=== PATIENT | male | born 1995 | race African-American/Black ===

== ENCOUNTER 2023-05-13 22:03 | Emergency (ER) | payer OTHER ==
--- NOTE | 2023-05-13 22:27 | EDPHYS ---
Physician Documentation [facility] Name: Marco A Hines Age: 27 yrs Sex: Male : 1995 Arrival Date: 05/13/2023 Time: 22:03 Bed 14 Private MD: ED Physician Jose Webb HPI: 05/13 22:20 This 27 yrs old Black Male presents to ER via Unassigned with complaints of right danyel hernia, painful. 22:20 The patient presents with scrotal pain, of the right side, swelling. Onset: The danyel symptoms/episode began/occurred today. Modifying factors: The symptoms are alleviated by remaining still, the symptoms are aggravated by movement. Associated signs and symptoms: Pertinent positives: abdominal pain. Severity of symptoms: At their worst the symptoms were moderate, in the emergency department the symptoms have improved. The patient has experienced similar episodes in the past, several times. Historical: - Allergies: 22:40 No Known Allergies; jw7 - Home Meds: 22:40 None [Active]; jw7 - PMHx: 22:40 None; jw7 - PSHx: 22:40 None; jw7 - Immunization history:: Adult Immunizations up to date. - Social history:: Smoking status: Reported history of juuling and/or vaping. - Family history:: not pertinent. ROS: 22:22 Constitutional: Negative for fever, chills, and weight loss, Eyes: Negative for injury, danyel pain, redness, and discharge, ENT: Negative for injury, pain, and discharge, Neck: Negative for injury, pain, and swelling, Cardiovascular: Negative for chest pain, palpitations, and edema, Respiratory: Negative for shortness of breath, cough, wheezing, and pleuritic chest pain, Back: Negative for injury and pain, : Negative for injury, bleeding, discharge, and swelling, MS/Extremity: Negative for injury and deformity, Skin: Negative for injury, rash, and discoloration, Neuro: Negative for headache, weakness, numbness, tingling, and seizure, Psych: Negative for depression, anxiety, suicide ideation, homicidal ideation, and hallucinations, Allergy/Immunology: Negative for hives, rash, and allergies, Endocrine: Negative for neck swelling, polydipsia, polyuria, polyphagia, and marked weight changes, Hematologic/Lymphatic: Negative for swollen nodes, abnormal bleeding, and unusual bruising. 22:22 Abdomen/GI: Positive for abdominal pain, of the right lower quadrant and left lower quadrant. Exam: 22:22 Constitutional: This is a well developed, well nourished patient who is awake, alert, danyel and in no acute distress. Head/Face: Normocephalic, atraumatic. Eyes: Pupils equal round and reactive to light, extra-ocular motions intact. Lids and lashes normal. Conjunctiva and sclera are non-icteric and not injected. Cornea within normal limits. Periorbital areas with no swelling, redness, or edema. ENT: Nares patent. No nasal discharge, no septal abnormalities noted. Tympanic membranes are normal and external auditory canals are clear. Oropharynx with no redness, swelling, or masses, exudates, or evidence of obstruction, uvula midline. Mucous membranes moist. Neck: Trachea midline, no thyromegaly or masses palpated, and no cervical lymphadenopathy. Supple, full range of motion without nuchal rigidity, or vertebral point tenderness. No Meningismus. Chest/axilla: Normal chest wall appearance and motion. Nontender with no deformity. No lesions are appreciated. Cardiovascular: Regular rate and rhythm with a normal S1 and S2. No gallops, murmurs, or rubs. Normal PMI, no JVD. No pulse deficits. Respiratory: Lungs have equal breath sounds bilaterally, clear to auscultation and percussion. No rales, rhonchi or wheezes noted. No increased work of breathing, no retractions or nasal flaring. Back: No spinal tenderness. No costovertebral tenderness. Full range of motion. Skin: Warm, dry with normal turgor. Normal color with no rashes, no lesions, and no evidence of cellulitis. MS/ Extremity: Pulses equal, no cyanosis. Neurovascular intact. Full, normal range of motion. Neuro: Awake and alert, GCS 15, oriented to person, place, time, and situation. Cranial nerves II-XII grossly intact. Motor strength 5/5 in all extremities. Sensory grossly intact. Cerebellar exam normal. Normal gait. Psych: Awake, alert, with orientation to person, place and time. Behavior, mood, and affect are within normal limits. 22:22 Abdomen/GI: Inspection: abdomen appears normal, Bowel sounds: normal, Palpation: moderate abdominal tenderness, in the right lower quadrant and left lower quadrant, Hernia: noted in the right femoral area, tenderness, that is moderate, bowel sounds are appreciated on auscultation. Vital Signs: 22:30 BP 113 / 74; Pulse 50; Resp 17 S; Pulse Ox 100% on R/A; jw7 22:36 BP 107 / 57; Pulse 48; Resp 17 S; Temp 97.6; Pulse Ox 100% on R/A; Weight 74.84 kg; jw7 Height 5 ft. 8 in. ; Pain 7/10; 05/14 00:16 BP 127 / 91; Pulse 60; Resp 16 S; Pulse Ox 100% on R/A; jw7 05/13 22:36 Body Mass Index 25.09 (74.84 kg, 172.72 cm) [facility] 22:36 Pain Scale: Adult [facility] MDM: 05/13 22:15 Patient medically screened. [facility] 22:23 Differential diagnosis: nonspecific abdominal pain, bowel obstruction, gastritis. Data danyel reviewed: vital signs, nurses notes, lab test result(s), radiologic studies, CT scan. Consideration of Admission/Observation Patient was admitted/placed on observation. Escalation of care including admission/observation considered. I considered the following discharge prescriptions or medication management in the emergency department Medications were administered in the Emergency Department. See MAR. Independent interpretation of the following test(s) in the Emergency Department Radiology Department Ultrasound: My interpretation is right hernia. Test considered but Not performed: Ultrasound no scrotal usg. Historians other than the Patient: EMS: tdc guards. Care significantly affected by the following chronic conditions: none. Counseling: I had a detailed discussion with the patient and/or guardian regarding: the historical points, exam findings, and any diagnostic results supporting the discharge/admit diagnosis, lab results, radiology results, the need to transfer to another facility, for higher level of care, [facility] does not immediately have the required specialist. 05/13 22:19 Order name: CBC with Diff; Complete Time: 23:37 [facility] 05/13 22:19 Order name: CMP; Complete Time: 23:37 [facility] 05/13 22:19 Order name: Lipase; Complete Time: 23:37 [facility] 05/13 22:19 Order name: Urinalysis w/ reflexes; Complete Time: 23:37 [facility] 05/13 22:19 Order name: CT Abd/Pelvis - IV Contrast Only [facility] 05/14 00:39 Order name: US Scrotum Testicles danyel 05/13 22:19 Order name: IV Saline Lock; Complete Time: 23:09 danyel 05/13 22:19 Order name: Labs collected and sent; Complete Time: 23:09 danyel Administered Medications: 23:09 Drug: NS 0.9% IV 1000 ml Route: IV; Rate: 1 bolus; Site: right antecubital; jw7 05/14 00:02 Follow up: Response: No adverse reaction; IV Status: Infusion continued; IV Intake: jw7 500ml 01:52 Follow up: IV Status: Completed infusion; IV Intake: 800ml 7 05/13 23:09 Drug: Ondansetron IVP 4 mg Route: IVP; Site: right antecubital; jw7 05/14 00:02 Follow up: Response: No adverse reaction [facility] 05/13 23:09 Drug: morphine IVP or IV 4 mg Route: IVP; Infused Over: 4 mins; Site: right antecubital;jw7 05/14 00:02 Follow up: Response: No adverse reaction jw7 Disposition Summary: 05/14/23 01:32 Discharge Ordered Location: Home danyel Problem: new(05/14/23 01:32) danyel Symptoms: have improved(05/14/23 01:32) danyel Condition: Stable(05/14/23 01:32) danyel Diagnosis - Hydrocele, unspecified - large right(05/14/23 01:33) danyel Followup: danyel - With: Private Physician - When: 2 - 3 days - Reason: Recheck today's complaints, Continuance of care, Re-evaluation by your physician Followup: danyel - With: - When: 2 - 3 days - Reason: Recheck today's complaints, Re-evaluation by your physician Discharge Instructions: - Discharge Summary Sheet danyel - Testicular Self-Exam danyel - Hydrocele, Adult danyel - Hydrocelectomy, Adult, Care After danyel - Hydrocelectomy, Adult danyel - Testicular Self-Exam, [id number] danyel Forms: - Medication Reconciliation Form danyel - Thank You Letter danyel - Antibiotic Education danyel - Prescription Opioid Use danyel - Patient Portal Instructions danyel Signatures: Dispatcher [employer] Jose Montano MD MD cha Waits, Jodi RN RN jw7 Corrections: (The following items were deleted from the chart) 05/13 22:27 22:27 to tdc danyel danyel : 22:27 Unilateral inguinal hernia, without obstruction or gangrene - painful danyel danyel 05/14 00:45 05/13 22:27 [facility] danyel danyel 05/14 00:45 05/13 22:27 Higher level of care danyel danyel 05/14 00:45 05/13 22:27 Fair danyel montaño 05/14 00:45 05/13 22:27 new danyel montaño 05/14 00:45 05/13 22:27 have improved danyel montaño 05/14 00:45 08 22:27 to td danyel danyel 05/14 00:45 05/13 22:27 Unilateral inguinal hernia, without obstruction or gangrene - painful, not danyel reducable danyel 05/14 01:33 01:32 Hydrocele, unspecified danyel montaño
[2023-05-13] MEDS ORDERED: NA CHLORIDE 0.9% 1,000 ML ONE (22:56)
[2023-05-13] MEDS ORDERED: ONDANSETRON 4 MG/2 ML VIAL ONE (22:56)
[2023-05-13] MEDS ORDERED: MORPHINE 4 MG/ML SYR ONE (22:56)
[2023-05-13 23:14] LABS: Absolute Lymphocytes (CBC) 2.5 K/uL (0.7-4.9); Hematocrit 38.3 % (39.6-49.0); Lymphocytes % 47.8 % (15.3-44.8); MCV 93.8 fL (80-100); MPV 7.1 fL (7.6-11.3); RBC Red Blood Cell Count 4.08 M/uL (4.33-5.43)
[2023-05-13 23:20] LABS: Specific Gravity > 1.030 (1.005-1.030); Urine Bacteria None Seen /HPF (<20); Urine Bilirubin NEGATIVE (Negative); Urine Blood Negative (Negative); Urine Clarity Clear (Clear); Urine Color Light-Yellow (Yellow); Urine Glucose NEGATIVE (Negative); Urine Mucus Slight /HPF (None Seen); Urine Protein 1+ (Negative); Urine RBC <5 /HPF (None Seen); Urine Urobilinogen 1+ (Normal); Urine pH 6.5 (5.0-7.0)
[2023-05-13 23:33] LABS: Albumin 4.2 g/dL (3.4-5.0); Bilirubin Total 0.3 mg/dL (0.2-1.0); Potassium 4.1 mEq/L (3.5-5.1); Protein, Total 7.7 g/dL (6.4-8.2)
--- NOTE | 2023-05-14 01:33 | ER ---
Nurse's Notes [facility] Name: Marco A Hines Age: 27 yrs Sex: Male : 1995 Arrival Date: 05/13/2023 Time: 22:03 Bed 14 Private MD: Diagnosis: Hydrocele, unspecified-large right Presentation: 05/13 22:36 Chief complaint: Patient states: has a hernia to right groin, "heard a pop sound from jw7 right groin", with severe onset of pain. Seen in [place] 2 weeks ago. Coronavirus screen: At this time, the client does not indicate any symptoms associated with coronavirus-19. Ebola Screen: No symptoms or risks identified at this time. Initial Sepsis Screen: Does the patient meet any 2 criteria? No. Patient's initial sepsis screen is negative. Does the patient have a suspected source of infection? No. Patient's initial sepsis screen is negative. Risk Assessment: Do you want to hurt yourself or someone else? Patient reports no desire to harm self or others. Onset of symptoms was May 13, 2023. 22:36 Method Of Arrival: EMS: [facility] 22:36 Acuity: ROHIT 3 jw7 Triage Assessment: 22:40 General: Appears in no apparent distress. Behavior is calm, cooperative. Pain: jw7 Complains of pain in right femoral area. Historical: - Allergies: 22:40 No Known Allergies; jw7 - Home Meds: 22:40 None [Active]; jw7 - PMHx: 22:40 None; jw7 - PSHx: 22:40 None; jw7 - Immunization history:: Adult Immunizations up to date. - Social history:: Smoking status: Reported history of juuling and/or vaping. - Family history:: not pertinent. Screenin:11 [facility] ED Fall Risk Assessment (Adult) History of falling in the last 3 months, jw7 including since admission No falls in past 3 months (0 pts) Score/Fall Risk Level 0 - 2 = Low Risk. Abuse screen: Denies threats or abuse. Denies injuries from another. Nutritional screening: No deficits noted. Tuberculosis screening: No symptoms or risk factors identified. Vital Signs: 22:30 BP 113 / 74; Pulse 50; Resp 17 S; Pulse Ox 100% on R/A; jw7 22:36 BP 107 / 57; Pulse 48; Resp 17 S; Temp 97.6; Pulse Ox 100% on R/A; Weight 74.84 kg; jw7 Height 5 ft. 8 in. ; Pain 7/10; 05/14 00:16 BP 127 / 91; Pulse 60; Resp 16 S; Pulse Ox 100% on R/A; jw7 05/13 22:36 Body Mass Index 25.09 (74.84 kg, 172.72 cm) jw7 22:36 Pain Scale: Adult jw7 ED Course: 05/13 22:14 Patient arrived in ED. rv1 22:15 Jose Webb MD is Attending Physician. [facility] 22:36 Macy Salinas RN is Primary Nurse. jw7 22:40 Triage completed. jw7 22:40 Arm band placed on. jw7 23:09 Initial lab(s) drawn, by nd, sent to lab. Urine collected: clean catch specimen, clear. jw7 Inserted saline lock: 20 gauge in right antecubital area, using aseptic technique. Blood collected. 23:09 CBC with Diff Sent. jw7 23:09 CMP Sent. jw7 23:09 Lipase Sent. jw7 23:09 Urinalysis w/ reflexes Sent. jw7 23:11 Patient has correct armband on for positive identification. Bed in low position. Side jw7 rails up X 1. 05/14 00:00 CT Abd/Pelvis - IV Contrast Only In Process Unspecified. EDCO 01:32 Isidro Garay MD is Referral Physician. [facility] 01:51 Provided Education on: discharge instructions. [facility] 01:51 No provider procedures requiring assistance completed. IV discontinued, intact, jw7 bleeding controlled, No redness/swelling at site. Pressure dressing applied. 01:52 US Scrotum Testicles Sent. jw7 02:23 US Scrotum Testicles In Process Unspecified. EDMS Administered Medications: 05/13 23:09 Drug: NS 0.9% IV 1000 ml Route: IV; Rate: 1 bolus; Site: right antecubital; jw7 05/14 00:02 Follow up: Response: No adverse reaction; IV Status: Infusion continued; IV Intake: jw7 500ml 01:52 Follow up: IV Status: Completed infusion; IV Intake: 800ml jw7 05/13 23:09 Drug: Ondansetron IVP 4 mg Route: IVP; Site: right antecubital; jw7 05/14 00:02 Follow up: Response: No adverse reaction jw7 05/13 23:09 Drug: morphine IVP or IV 4 mg Route: IVP; Infused Over: 4 mins; Site: right antecubital;jw7 05/14 00:02 Follow up: Response: No adverse reaction jw7 Medication: 05/13 23:12 VIS not applicable for this client. jw7 Intake: 05/14 00:02 IV: 500ml; Total: 500ml. jw7 01:52 IV: 800ml; Total: 1300ml. jw7 Outcome: 05/13 22:27 ER care complete, transfer ordered by . danyel 05/14 01:32 Discharge ordered by . danyel 01:51 Discharged to Law Enforcement jw7 01:51 Condition: stable 01:51 Discharge instructions given to patient, Instructed on discharge instructions, follow up and referral plans. Demonstrated understanding of instructions, follow-up care. 01:53 Patient left the ED. jw7 Signatures: Dispatcher [employer] EDCO Jose Webb MD MD cha Waits, Jodi RN RN jwJasmyne Vargas rv1 Corrections: (The following items were deleted from the chart) 05/13 22:42 22:36 Acuity: ROHIT 4 jw7 jw7 22:43 22:36 Chief complaint: Patient states: has a hernia to right testicle, "heard a pop jw7 sound from right testicle", with severe onset of pain. Seen in [place] 2 weeks ago. jw7
[2023-05-14 02:07] VITALS: O2SAT 100
[2023-05-14 02:13] VITALS: TEMP 97.6
[2023-05-14 02:18] VITALS: BP 127/91
--- NOTE | 2023-05-14 08:04 | RAD REPORT ---
EXAM DESCRIPTION: US - Scrotum Testicles - 05/14/2023 2:21 am CLINICAL HISTORY: hydrocele Pain and swelling COMPARISON: Abdomen Pelvis W Contrast dated 05/13/2023 FINDINGS: The right testicle 4.4 x 2.7 x 2.3 cm.. No intratesticular masses or evidence of testicula r torsion. The left testicle 3.6 x 2.7 x 1.6 cm.. No intratesticular masses or evidence of testicular torsion. No gross epididymal abnormality. Large right hydrocele versus spermatocele noted. IMPRESSION: Large right hydrocele or spermatocele. Negative for testicular torsion.
--- NOTE | 2023-05-14 15:18 | RAD REPORT ---
EXAM DESCRIPTION: ABD PAIN COMPARISON: None. TECHNIQUE: CT ABDOMEN PELVIS WITH IV CONTRAST on 05/13/2023 10:19 PM CDT This exam was performed according to our departmental dose-optimization program, which includes autom ated exposure control, adjustment of the mA and/or kV according to patient size and/or use of iterati ve reconstruction technique. FINDINGS: Lower lungs are clear. Abdomen: The liver is normal in appearance. There is no biliary dilatation. The pancreas and spleen a re normal in appearance. The adrenal glands and kidneys are unremarkable. Abdominal aorta is normal in course and caliber without aneurysm. There is no free air. There is no r etroperitoneal adenopathy. Pelvis: There is large stool throughout the colon. Urinary bladder is unremarkable. There is no free fluid. Appendix is normal. There is a large right scrotal hydrocele. Skeleton: There are no acute osseous findings. No suspicious bony lesions. IMPRESSION: Large right scrotal hydrocele. Recommend scrotal ultrasound. Electronically signed by: Brody Shaw MD 05/14/2023 12:20 AM CDT Due to temporary technical issues with the PACS/Fluency reporting system, reports are being signed by the in house radiologists without review as a courtesy to insure prompt reporting. The interpreting radiologist is fully responsible for the content of the report.
== END 2023-05-14 01:53 | disposition home or self-care (01) ==
LOC: ER 22:03
DX: N43.3 Hydrocele, unspecified (principal)
CPT/HCPCS: 96361; 85025; 81001; 36415; 83690; 80053; 74177; 76870; 96375; 96374; 99284; Q9967; J2405; J7030

== ENCOUNTER 2023-06-29 11:34 | Emergency (ER) | payer OTHER ==
--- NOTE | 2023-06-29 13:12 | RAD REPORT ---
EXAM DESCRIPTION: US - Scrotum Testicles - 06/29/2023 12:56 pm CLINICAL HISTORY: swollen testicle Pain and swelling COMPARISON: Scrotum Testicles dated 05/14/2023 FINDINGS: The right testicle 4.3 x 2.5 cm. No intratesticular masses or evidence of testicular torsi on. The left testicle 4.7 x 2.3 cm. No intratesticular masses or evidence of testicular torsion. Both epididymides are normal in size and appearance. Large bilateral hydroceles. IMPRESSION: No testicular mass or torsion findings. Large bilateral hydroceles or less likely spermatoceles identified.
--- NOTE | 2023-06-29 13:36 | EDPHYS ---
Physician Documentation [facility] Name: Marco A Hines Age: 27 yrs Sex: Male : 1995 Arrival Date: 06/29/2023 Time: 11:34 Bed 23 Private MD: ED Physician Vadim Hogan HPI: 06/29 13:36 This 27 yrs old Black Male presents to ER via Law Enforcement with complaints of ms3 Testicular pain and swelling . 13:36 27-year-old male with past medical history of asthma presents with [facility] guards for ms3 testicular swelling. Patient states he has a large hydrocele and is painful. Patient states he was recently seen at [facility] and surgery was supposed to be scheduled in the present does not have record of when the surgery is to occur. Patient states he is not having increased pain and trouble urinating and having bowel movements due to the size of his testicle.. Historical: - Allergies: 12:14 No Known Allergies; dd1 - Home Meds: 12:14 MEDICATION FOR HERPES [Active]; dd1 - PMHx: 12:14 Asthma; dd1 - PSHx: 12:14 None; dd1 - Immunization history:: Adult Immunizations not up to date. - Social history:: Smoking status: Reported history of juuling and/or vaping. ROS: 13:36 Constitutional: Negative for fever, and chills. Neck: Negative for injury, pain, and ms3 swelling, Cardiovascular: Negative for chest pain, and palpitations. Respiratory: Negative for shortness of breath, cough, wheezing, and pleuritic chest pain, Abdomen/GI: Negative for abdominal pain, nausea, vomiting, diarrhea, and constipation, 13:36 : Positive for testicular pain 13:36 All other systems are negative, Exam: 13:36 Constitutional: This is a well developed, well nourished patient who is awake, alert, ms3 and in no acute distress. Head/Face: Normocephalic, atraumatic. Chest/axilla: Normal chest wall appearance and motion. Nontender with no deformity. Cardiovascular: Regular rate and rhythm with a normal S1 and S2. No gallops, murmurs, or rubs. Normal PMI, no JVD. No pulse deficits. Respiratory: Lungs have equal breath sounds bilaterally, clear to auscultation and percussion. No rales, rhonchi or wheezes noted. No increased work of breathing, no retractions or nasal flaring. Abdomen/GI: Soft, non-tender, with normal bowel sounds. No distension or tympany. No guarding or rebound. No evidence of tenderness throughout. 13:36 : Male external genitalia: Circumcision noted. swelling: of the right testicle is noted, tenderness, of the right testicle is noted, Vital Signs: 11:57 BP 128 / 91; Pulse 58; Resp 16; Temp 97.1; Pulse Ox 100% on R/A; Weight 63.5 kg; Height em1 5 ft. 8 in. ; Pain 6/10; 13:59 BP 138 / 98; Pulse 54; Resp 17; Temp 98.1; Pulse Ox 97% ; Pain 10/10; dd1 11:57 Body Mass Index 21.29 (63.50 kg, 172.72 cm) em1 11:57 Pain Scale: Adult em1 13:59 Pain Scale: Adult dd1 MDM: 11:44 Patient medically screened. ms3 13:36 Differential diagnosis: Hydrocele versus testicular torsion versus epididymitis. Data ms3 reviewed: vital signs, nurses notes, radiologic studies, ultrasound, and as a result, I will discharge patient. Management of patient was discussed with the following: Primary Care Provider: Discussed case with provider at the shelter unit. She states she is working with [facility] to get patient to urology for surgical correction of his hydrocele. Counseling: I had a detailed discussion with the patient and/or guardian regarding the historical points, exam findings, and any diagnostic results supporting the discharge/admit diagnosis, radiology results, the need for outpatient follow up, to return to the emergency department if symptoms worsen or persist or if there are any questions or concerns that arise at home. Special discussion: I discussed with the patient/guardian in detail that at this point there is no indication for admission to the hospital. It is understood, however, that if the symptoms persist or worsen the patient needs to return immediately for re-evaluation. ED course: Discussed ultrasound findings with patient and he understands plan. Patient to see urology through [facility]. All questions were answered. Return precautions discussed include worsening symptoms, or any other concerns. On reevaluation patient is alert and oriented x4, no apparent distress, nontoxic-appearing, ambulatory in emergency department, speaking full sentences. 06/29 11:48 Order name: US Scrotum Testicles; Complete Time: 13:34 ms3 Administered Medications: No medications were administered Disposition Summary: 06/29/23 13:36 Discharge Ordered Notes: Location: Home ms3 Condition: Stable ms3 Diagnosis - Hydrocele, unspecified ms3 - Testicular pain ms3 Followup: ms3 - With: Private Physician - When: 2 - 3 days - Reason: Recheck today's complaints Discharge Instructions: - Discharge Summary Sheet ms3 - Hydrocele, Adult ms3 Forms: - Medication Reconciliation Form ms3 - Thank You Letter ms3 - Antibiotic Education ms3 - Prescription Opioid Use ms3 - Patient Portal Instructions ms3 - Leadership Thank You Letter ms3 Signatures: Dispatcher [employer] Vadim Solis DO DO ms3 Deshawn Seo, RN RN dd1
--- NOTE | 2023-06-29 13:36 | ER ---
Nurse's Notes [facility] Name: Marco A Hines Age: 27 yrs Sex: Male : 1995 Arrival Date: 06/29/2023 Time: 11:34 Bed 23 Private MD: Diagnosis: Hydrocele, unspecified;Testicular pain Presentation: 06/29 11:47 Chief complaint: Patient states: PT STATES SWELLING TO SCROTUM FOR 1 YEAR, GETTING dd1 WORSE, HAD US OVER 1 MONTH AGO. STATES NO FEVERS, NOW HAVING TROUBLE VOIDING. 11:47 Coronavirus screen: Vaccine status: Patient reports being unvaccinated. Client denies dd1 travel out of the [place] in the last 14 days. At this time, the client does not indicate any symptoms associated with coronavirus-19. Ebola Screen: No symptoms or risks identified at this time. Initial Sepsis Screen: Does the patient meet any 2 criteria? No. Patient's initial sepsis screen is negative. Does the patient have a suspected source of infection? No. Patient's initial sepsis screen is negative. 11:47 Method Of Arrival: Law Enforcement dd1 11:47 Risk Assessment: Do you want to hurt yourself or someone else? Patient reports no dd1 desire to harm self or others. Onset of symptoms was 2021. 11:47 Acuity: ROHIT 4 dd1 Triage Assessment: 14:00 General: Appears in no apparent distress. Behavior is calm. dd1 Historical: - Allergies: 12:14 No Known Allergies; dd1 - Home Meds: 12:14 MEDICATION FOR HERPES [Active]; dd1 - PMHx: 12:14 Asthma; dd1 - PSHx: 12:14 None; dd1 - Immunization history:: Adult Immunizations not up to date. - Social history:: Smoking status: Reported history of juuling and/or vaping. Screenin:14 [facility] ED Fall Risk Assessment (Adult) Score/Fall Risk Level 0 - 2 = Low Risk. Abuse dd1 screen: Denies threats or abuse. Nutritional screening: No deficits noted. Tuberculosis screening: No symptoms or risk factors identified. Assessment: 12:13 Pain: Complains of pain in TO SCROTUM Pain currently is 6 out of 10 on a pain scale. dd1 Derm: SEE TRIAGE NOTE. Vital Signs: 11:57 BP 128 / 91; Pulse 58; Resp 16; Temp 97.1; Pulse Ox 100% on R/A; Weight 63.5 kg; Height em1 5 ft. 8 in. ; Pain 6/10; 13:59 BP 138 / 98; Pulse 54; Resp 17; Temp 98.1; Pulse Ox 97% ; Pain 10/10; dd1 11:57 Body Mass Index 21.29 (63.50 kg, 172.72 cm) em1 11:57 Pain Scale: Adult em1 13:59 Pain Scale: Adult dd1 ED Course: 11:36 Patient arrived in ED. bd 11:37 Vadim Hogan DO is Attending Physician. ms3 11:46 Deshawn Seo, RN is Primary Nurse. dd1 11:55 Triage completed. dd1 12:14 Bed in low position. Call light in reach. Side rails up X 1. dd1 12:44 US Scrotum Testicles In Process Unspecified. EDMS 13:59 Arm band placed on right wrist. dd1 13:59 No provider procedures requiring assistance completed. Patient did not have IV access dd1 during this emergency room visit. 14:00 Provided Education on: DC INSTRUCTIONS. dd1 Administered Medications: No medications were administered Medication: 12:14 VIS not applicable for this client. dd1 Outcome: 13:36 Discharge ordered by . ms3 13:59 Discharged to [facility] dd1 13:59 Condition: good 13:59 Discharge instructions given to patient, 14:00 Patient left the ED. dd1 Signatures: Dispatcher [employer] EDMS Caitlin Dejesus Eric em1 Vadim Hogan DO DO ms3 Deshawn Seo, RN RN dd1
[2023-06-29 15:11] VITALS: BP 138/98; TEMP 98.1; O2SAT 97
== END 2023-06-29 14:00 | disposition home or self-care (01) ==
LOC: ER 11:34
DX: N43.3 Hydrocele, unspecified (principal)
CPT/HCPCS: 76870

== ENCOUNTER 2023-06-29 19:27 | Emergency (ER) | payer OTHER ==
[2023-06-29 20:38] LABS: Absolute Lymphocytes (CBC) 1.3 K/uL (0.7-4.9); Lymphocytes % 17.9 % (15.3-44.8); MCV 91.9 fL (80-100); MPV 6.8 fL (7.6-11.3); Platelets 267 thou/uL (152-406); RBC Red Blood Cell Count 4.25 M/uL (4.33-5.43)
[2023-06-29] MEDS ORDERED: KETOROLAC 30 MG/ML INJ ONE (20:43)
--- NOTE | 2023-06-29 20:49 | EDPHYS ---
Physician Documentation [facility] Name: Marco A Hines Age: 27 yrs Sex: Male : 1995 Arrival Date: 06/29/2023 Time: : Bed 26 Private MD: ED Physician Jose Webb HPI: 06/29 21:07 This 27 yrs old Black Male presents to ER via EMS with complaints of Testicular Pain, ms3 Urinary Retention. 21:07 27-year-old male with past medical history of asthma presents for difficulty with ms3 urination, pain, pulling sensation in his left testicle. Patient states this has become worse over the last 3 days. Patient was seen in the emergency department earlier today with ultrasound showing hydrocele.. Historical: - Allergies: 19:34 No Known Allergies; dd1 - Home Meds: 19:34 MEDICATION FOR HERPES [Active]; dd1 - PMHx: 19:34 Asthma; dd1 - PSHx: 19:34 None; dd1 - Immunization history:: Adult Immunizations not up to date. - Social history:: Smoking status: Reported history of juuling and/or vaping. ROS: 21:07 Constitutional: Negative for fever, and chills. Neck: Negative for injury, pain, and ms3 swelling, Cardiovascular: Negative for chest pain, and palpitations. Respiratory: Negative for shortness of breath, cough, wheezing, and pleuritic chest pain, Abdomen/GI: Negative for abdominal pain, nausea, vomiting, diarrhea, and constipation, MS/Extremity: Negative for injury and deformity, Skin: Negative for injury, rash, and discoloration, 21:07 All other systems are negative, Exam: 21:09 Constitutional: This is a well developed, well nourished patient who is awake, alert, ms3 and in no acute distress. Head/Face: Normocephalic, atraumatic. Chest/axilla: Normal chest wall appearance and motion. Nontender with no deformity. Cardiovascular: Regular rate and rhythm with a normal S1 and S2. No gallops, murmurs, or rubs. Normal PMI, no JVD. No pulse deficits. Respiratory: Lungs have equal breath sounds bilaterally, clear to auscultation and percussion. No rales, rhonchi or wheezes noted. No increased work of breathing, no retractions or nasal flaring. Abdomen/GI: Soft, non-tender, with normal bowel sounds. No distension or tympany. No guarding or rebound. No evidence of tenderness throughout. Skin: Warm, dry with normal turgor. Normal color with no rashes, no lesions, and no evidence of cellulitis. MS/ Extremity: Pulses equal, no cyanosis. Neurovascular intact. Full, normal range of motion. 21:09 : Male external genitalia: Circumcision noted. swelling: scrotal, tenderness, Vital Signs: 19:31 Pulse 61; Resp 20; Temp 97.7; Pulse Ox 100% ; Pain 10/10; dd1 19:36 BP 107 / 71; dd1 20:00 BP 108 / 83; Pulse 56; Resp 19; Pulse Ox 99% ; Pain 10/10; dd1 20:56 BP 115 / 86; Pulse 52; Resp 17; Pulse Ox 100% ; Pain 10/10; dd1 22:09 BP 116 / 88; Pulse 52; Resp 17; Pulse Ox 100% ; Pain 10/10; dd1 23:16 BP 113 / 84; Pulse 52; Resp 19; Pulse Ox 100% ; dd1 19:31 Pain Scale: Adult dd1 20:00 Pain Scale: Adult dd1 20:56 Pain Scale: Adult dd1 22:09 Pain Scale: Adult dd1 MDM: 19:44 Patient medically screened. ms3 21:09 Differential diagnosis: Hydrocele versus urinary tract infection versus SHEYLA. ms3 22:41 Data reviewed: vital signs, nurses notes, radiologic studies, ultrasound. Consideration danyel of Admission/Observation Escalation of care including admission/observation considered. I considered the following discharge prescriptions or medication management in the emergency department Medications were administered in the Emergency Department. See MAR. Test considered but Not performed: CT: NO CT NEEDED. Care significantly affected by the following chronic conditions: ASTHMA, HYDROCELE. 06/29 19:44 Order name: CBC with Diff; Complete Time: 20:45 ms3 06/29 19:44 Order name: BMP; Complete Time: 21:13 ms3 06/29 22:41 Order name: Bladder Scanner danyel Administered Medications: 20:35 Drug: Ketorolac IVP 10 mg 10 mg IVP once Route: IVP; Site: right forearm; dd1 Disposition Summary: 06/29/23 22:44 Discharge Ordered Notes: Location: Home danyel Problem: new(06/29/23 22:44) danyel Symptoms: have improved(06/29/23 22:44) danyel Condition: Stable(06/29/23 22:44) danyel Diagnosis - Hydrocele, unspecified - LARGE, NO TORSION(06/29/23 22:44) danyel - Testicular pain, unspecified(06/29/23 22:44) danyel Followup: danyel - With: Private Physician - When: 2 - 3 days - Reason: Recheck today's complaints, Continuance of care, Re-evaluation by your physician Discharge Instructions: - Discharge Summary Sheet danyel - Hydrocele, Adult danyel - Testicular Self-Exam, [id number] danyel Forms: - Medication Reconciliation Form danyel - Thank You Letter danyel - Antibiotic Education danyel - Prescription Opioid Use danyel - Patient Portal Instructions danyel - Leadership Thank You Letter danyel Signatures: Dispatcher [employer] Jose Montano MD MD cha Sims, Marcus, DO DO ms3 Deshawn Seo, RN RN dd1 Corrections: (The following items were deleted from the chart) 22:39 20:49 Dr ms3 danyel 22:39 20:[address] [facility] ms3 danyel 22:39 20:49 Higher level of care ms3 danyel 22:39 20:49 Stable ms3 danyel 22:39 20:49 new ms3 danyel 22:39 20:49 are unchanged ms3 danyel 22:39 20:49 Hydrocele, unspecified ms3 danyel 22:39 20:49 Testicular pain, unspecified ms3 danyel
--- NOTE | 2023-06-29 20:49 | ER ---
Nurse's Notes [facility] Name: Marco A Hines Age: 27 yrs Sex: Male : 1995 Arrival Date: 06/29/2023 Time: 19:27 Bed 26 Private MD: Diagnosis: Hydrocele, unspecified-LARGE, NO TORSION;Testicular pain, unspecified Presentation: 06/29 19:31 Chief complaint: Patient states: PT PRESENTS WITH TESTICULAR SWELLING AND PAIN. SEEN dd1 HERE COUPLE HOURS AGO FOR SAME COMPLAINT. PT IS HAVING URINARY RETENTION. Coronavirus screen: Vaccine status: Patient reports being unvaccinated. Ebola Screen: No symptoms or risks identified at this time. Initial Sepsis Screen: Does the patient meet any 2 criteria? No. Patient's initial sepsis screen is negative. Does the patient have a suspected source of infection? No. Patient's initial sepsis screen is negative. Risk Assessment: Do you want to hurt yourself or someone else? Patient reports no desire to harm self or others. Onset of symptoms was 2021. 19:31 Method Of Arrival: EMS: [facility] dd1 19:31 Acuity: ROHIT 3 dd1 Triage Assessment: 19:34 General: Appears distressed, Behavior is unresponsive. Pain: Complains of pain in dd1 SCROTUM. Historical: - Allergies: 19:34 No Known Allergies; dd1 - Home Meds: 19:34 MEDICATION FOR HERPES [Active]; dd1 - PMHx: 19:34 Asthma; dd1 - PSHx: 19:34 None; dd1 - Immunization history:: Adult Immunizations not up to date. - Social history:: Smoking status: Reported history of juuling and/or vaping. Screenin:35 [facility] ED Fall Risk Assessment (Adult) Score/Fall Risk Level 0 - 2 = Low Risk. Abuse dd1 screen: Denies threats or abuse. Nutritional screening: No deficits noted. Tuberculosis screening: No symptoms or risk factors identified. Assessment: 19:35 Derm: Reports SEE TRIAGE NOTE. PT DENIED OSORIO INSERTION. dd1 Vital Signs: 19:31 Pulse 61; Resp 20; Temp 97.7; Pulse Ox 100% ; Pain 10/10; dd1 19:36 BP 107 / 71; dd1 20:00 BP 108 / 83; Pulse 56; Resp 19; Pulse Ox 99% ; Pain 10/10; dd1 20:56 BP 115 / 86; Pulse 52; Resp 17; Pulse Ox 100% ; Pain 10/10; dd1 22:09 BP 116 / 88; Pulse 52; Resp 17; Pulse Ox 100% ; Pain 10/10; dd1 23:16 BP 113 / 84; Pulse 52; Resp 19; Pulse Ox 100% ; dd1 19:31 Pain Scale: Adult dd1 20:00 Pain Scale: Adult dd1 20:56 Pain Scale: Adult dd1 22:09 Pain Scale: Adult dd1 ED Course: 19:30 Patient arrived in ED. pf1 19:31 Deshawn Seo, RN is Primary Nurse. dd1 19:34 Vadim Hogan DO is Attending Physician. ms3 19:34 Triage completed. dd1 19:34 Arm band placed on left wrist. dd1 19:35 Side rails up X2. Adult w/ patient. GUARDS X3 WITH PATIENT. dd1 20:35 BMP Sent. dd1 20:35 CBC with Diff Sent. dd1 20:35 Inserted saline lock: 22 gauge in right forearm, using aseptic technique. dd1 22:02 Initiated transfer with [facility] Managed Care. rv1 22:33 [facility] declined due to capacity. rv1 22:39 Attending Physician role handed off by Vadim Hogan DO [facility] 22:39 Jose Webb MD is Attending Physician. [facility] 23:39 No provider procedures requiring assistance completed. dd1 23:40 BLADDER SCANNER USED, 112 ML RESULT. NOTIFIED. dd1 23:49 IV discontinued, intact. dd1 23:50 Provided Education on: DC INSTRUCTIONS. dd1 Administered Medications: 20:35 Drug: Ketorolac IVP 10 mg 10 mg IVP once Route: IVP; Site: right forearm; dd1 Medication: 19:35 VIS not applicable for this client. dd1 Outcome: 20:49 ER care complete, transfer ordered by . ms3 22:44 Discharge ordered by . [facility] 23:49 Discharged to [facility] dd1 23:49 Condition: good 23:49 Discharge instructions given to patient, 23:50 Patient left the ED. dd1 Signatures: Jose Webb MD MD cha Sims, Marcus, DO DO ms3 Rosalba Washburn RN RN pf1 Jasmyne Wilson rv1 Deshawn Seo, RN RN dd1 Corrections: (The following items were deleted from the chart) 23:21 19:35 Derm: Reports SEE TRIAGE NOTE dd1 dd1
[2023-06-29 20:52] LABS: Potassium 3.7 mEq/L (3.5-5.1)
[2023-06-30 01:22] VITALS: TEMP 97.7
[2023-06-30 01:26] VITALS: O2SAT 100
[2023-06-30 01:28] VITALS: BP 113/84
== END 2023-06-29 23:50 | disposition home or self-care (01) ==
LOC: ER 19:27
DX: N43.3 Hydrocele, unspecified (principal)
CPT/HCPCS: 36415; 80048; 85025

== ENCOUNTER 2024-01-06 00:23 | Emergency (ER) | payer OTHER ==
[2024-01-06] MEDS ORDERED: KETOROLAC 30 MG/ML INJ ONE (00:49)
[2024-01-06] MEDS ORDERED: ONDANSETRON 4 MG/2 ML VIAL ONE (00:49)
[2024-01-06 01:25] LABS: Absolute Eosinophils 0.2 K/uL (0-0.5); Absolute Lymphocytes (CBC) 2.8 K/uL (0.7-4.9); Absolute Monocytes 0.5 K/uL (0.1-1.3); Basophils % 0.9 % (0-1.3); Eosinophils % 4.5 % (0-4.4); Hematocrit 37.7 % (39.6-49.0); Hemoglobin 12.4 g/dL (13.6-17.9); Lymphocytes % 61.5 % (15.3-44.8); MCH 30.6 pg (27.0-35.0); MCV 92.7 fL (80-100); MPV 6.6 fL (7.6-11.3); Monocytes % 10.7 % (3.3-12.3); Neutrophils % 22.4 % (41.7-73.7); Nucleated Red Blood Cells % 0.1 % (0-0); Platelets 261 thou/uL (152-406); RBC Red Blood Cell Count 4.07 M/uL (4.33-5.43); Red Cell Distribution Width 13.1 % (12.1-15.2)
[2024-01-06 01:43] LABS: Albumin 3.7 g/dL (3.4-5.0); Anion Gap 10.1 mEq/L (5.0-15.0); Bilirubin Total 0.5 mg/dL (0.2-1.0); Globulin 3.6 g/dL (2.3-3.5); Potassium 4.1 mEq/L (3.5-5.1); Protein, Total 7.3 g/dL (6.4-8.2)
--- NOTE | 2024-01-06 02:44 | ER ---
Nurse's Notes [facility] Name: Marco A Hines Age: 28 yrs Sex: Male : 1995 Arrival Date: 01/06/2024 Time: 00:23 Bed 18 Private MD: Diagnosis: Right testicular pain, diminished vascularity of the right testicle, right testicular hydrocele Presentation: 01/05 00:30 Chief complaint: Patient states: Testicular pain onset 1.5 weeks ago. Coronavirus cm10 screen: Client denies travel out of the [place] in the last 14 days. At this time, the client does not indicate any symptoms associated with coronavirus-19. Ebola Screen: Patient denies travel to an Ebola-affected area in the 21 days before illness onset. No symptoms or risks identified at this time. Initial Sepsis Screen: Does the patient meet any 2 criteria? No. Patient's initial sepsis screen is negative. Does the patient have a suspected source of infection? No. Patient's initial sepsis screen is negative. Risk Assessment: Do you want to hurt yourself or someone else? Patient reports no desire to harm self or others. Onset of symptoms was January 06, 2024. 00:30 Method Of Arrival: Law Enforcement: [place] [employer] cm10 00:30 Acuity: ROHIT 3 cm10 Triage Assessment: 00:32 General: Appears in no apparent distress. comfortable, Behavior is calm, cooperative. cm10 Pain: Complains of pain in groin Pain currently is 7 out of 10 on a pain scale. Neuro: No deficits noted. Level of Consciousness is awake, alert, obeys commands, Oriented to person, place, time, situation. Cardiovascular: No deficits noted. Respiratory: No deficits noted. Airway is patent Respiratory effort is even, unlabored, Respiratory pattern is regular. GI: No deficits noted. No signs and/or symptoms were reported involving the gastrointestinal system. : Reports pain scrotum. Derm: No deficits noted. No signs and/or symptoms reported regarding the dermatologic system. Skin is intact. Musculoskeletal: No deficits noted. Range of motion: intact in all extremities. Historical: - Allergies: 00:31 No Known Allergies; cm10 - PMHx: 00:31 Asthma; HYDROCELE; cm10 - PSHx: 00:31 Testicular; cm10 - Immunization history:: Adult Immunizations up to date. - Social history:: Smoking status: Patient denies any tobacco usage or history of. - Family history:: not pertinent. Screenin:33 [facility] ED Fall Risk Assessment (Adult) History of falling in the last 3 months, cm10 including since admission No falls in past 3 months (0 pts) Confusion or Disorientation No (0 pts) Intoxicated or Sedated No (0 pts) Impaired Gait No (0 pts) Mobility Assist Device Used No (0 pt) Altered Elimination No (0 pt) Score/Fall Risk Level 0 - 2 = Low Risk Oriented to surroundings, Maintained a safe environment, Hourly rounding (assess needs \T\ fall precautionary measures) done. Abuse screen: Denies threats or abuse. Denies injuries from another. Nutritional screening: No deficits noted. Tuberculosis screening: No symptoms or risk factors identified. Assessment: 00:45 General: Appears in no apparent distress. uncomfortable, Behavior is calm, cooperative. jw7 Pain: Complains of pain in groin Pain does not radiate. Pain currently is 7 out of 10 on a pain scale. Quality of pain is described as aching, Pain began suddenly, Is continuous. Neuro: Level of Consciousness is awake, alert, obeys commands, Oriented to person, place, time, situation. Cardiovascular: Heart tones S1 S2 present Capillary refill < 3 seconds Clubbing of nail beds is absent JVD is absent Patient's skin is warm and dry. Respiratory: Airway is patent Trachea midline Respiratory effort is even, unlabored, Respiratory pattern is regular, symmetrical. 00:45 GI: Abdomen is flat, non-distended, Bowel sounds present X 4 quads. Abd is soft and non jw7 tender X 4 quads. : No deficits noted. No signs and/or symptoms were reported regarding the genitourinary system. EENT: No deficits noted. No signs and/or symptoms were reported regarding the EENT system. Derm: Skin is intact, is healthy with good turgor, Skin is dry, Skin is normal, Skin temperature is warm. Musculoskeletal: Circulation, motion, and sensation intact. Range of motion: intact in all extremities. 01:45 Reassessment: Patient appears in no apparent distress at this time. No changes from jw7 previously documented assessment. Patient and/or family updated on plan of care and expected duration. Pain level reassessed. Patient is alert, oriented x 3, equal unlabored respirations, skin warm/dry/pink. Vital Signs: 00:30 BP 133 / 83; Pulse 65; Resp 16; Temp 97.9(O); Pulse Ox 99% on R/A; Weight 65.32 kg; cm10 Height 5 ft. 8 in. ; Pain 7/10; 01:15 BP 126 / 89; Pulse 48; Resp 15 S; Pulse Ox 100% on R/A; jw7 02:00 BP 112 / 92; Pulse 48; Resp 16 S; Pulse Ox 100% on R/A; jw7 00:30 Body Mass Index 21.89 (65.32 kg, 172.72 cm) cm10 00:30 Pain Scale: Adult cm10 Bryant Coma Score: 01:12 Eye Response: spontaneous(4). Motor Response: obeys commands(6). Verbal Response: sp4 oriented(5). Total: 15. ED Course: 00:30 Patient arrived in ED. rv1 00:31 Triage completed. cm10 00:33 Flavio Serna MD is Attending Physician. sp4 00:33 Arm band placed on Patient placed in an exam room, on a stretcher. cm10 00:33 Patient has correct armband on for positive identification. Bed in low position. Call cm10 light in reach. TDCJ guards at bedside. 00:46 Macy Salinas, RN is Primary Nurse. jw7 01:09 CBC with Diff Sent. cm10 01:09 CMP Sent. cm10 01:09 Initial lab(s) drawn, by id, sent to lab. Inserted saline lock: 20 gauge in right cm10 antecubital area, using aseptic technique. Blood collected. 01:37 Scrotum Testicles In Process Unspecified. EDMS 02:36 [facility] contacted at this time to initiate transfer. Per Vonda, She will call back. cm10 03:23 No provider procedures requiring assistance completed. IV discontinued, intact, cm10 bleeding controlled, No redness/swelling at site. Pressure dressing applied. 03:24 Provided Education on: Follow-up instructions. cm10 Administered Medications: 01:20 Drug: TORadol - Ketorolac IVP 30 mg IVP once Route: IVP; Site: right antecubital; [facility] 03:24 Follow up: Response: No adverse reaction cm10 01:20 Drug: Ondansetron IVP 4 mg IVP once; over 2 minutes Route: IVP; Site: right antecubital;jw7 03:24 Follow up: Response: No adverse reaction cm10 Medication: 00:33 VIS not applicable for this client. cm10 Outcome: 02:44 ER care complete, transfer ordered by MD. sharma 03:07 Discharge ordered by MD. sharma 03:23 Discharged to [facility] cm10 03:23 Condition: good 03:23 Discharge instructions given to patient, Instructed on discharge instructions, follow up and referral plans. Demonstrated understanding of instructions, follow-up care, 03:24 Patient left the ED. cm10 Signatures: Dispatcher [employer] EDMS Macy Salinas RN RN jw7 Jasmyne Wilson Sergey, MD MD sp4 Diana Dominguez RN RN cm10
--- NOTE | 2024-01-06 02:44 | EDPHYS ---
Physician Documentation [facility] Name: Marco A Hines Age: 28 yrs Sex: Male : 1995 Arrival Date: 01/06/2024 Time: 00:23 Bed 18 Private MD: ED Physician Flavio Serna HPI: 01/05 00:33 This 28 yrs old Black Male presents to ER via [employer] with complaints of right sp4 testicular pain . 01:12 Male presents from [facility] with nursing home escort. Patient reports acute onset sp4 right testicular pain. Patient states approximately 2 months ago he had a right testicular surgery for right testicular hydrocele. He now reports pain and discomfort in the right testicle. . Historical: - Allergies: 00:31 No Known Allergies; cm10 - PMHx: 00:31 Asthma; HYDROCELE; cm10 - PSHx: 00:31 Testicular; cm10 - Immunization history:: Adult Immunizations up to date. - Social history:: Smoking status: Patient denies any tobacco usage or history of. - Family history:: not pertinent. ROS: 01:12 Constitutional: Negative for fever, chills, and weight loss, positive right testicular sp4 pain 01:12 All other systems are negative, Exam: 01:12 Constitutional: This is a well developed, well nourished patient who is awake, alert, sp4 and in no acute distress. Head/Face: Normocephalic, atraumatic. Eyes: Pupils equal round and reactive to light, extra-ocular motions intact. Lids and lashes normal. Conjunctiva and sclera are not injected. Cornea within normal limits. Periorbital areas with no swelling, redness, or edema. ENT: Nares patent. No nasal discharge, no septal abnormalities noted. Tympanic membranes are normal and external auditory canals are clear. Oropharynx with no redness, swelling, or masses, exudates, or evidence of obstruction, uvula midline. Mucous membranes moist. Neck: Trachea midline, no thyromegaly or masses palpated, and no cervical lymphadenopathy. Supple, full range of motion without nuchal rigidity, or vertebral point tenderness. Chest/axilla: Normal chest wall appearance and motion. Nontender with no deformity. No lesions are appreciated. Cardiovascular: Regular rate and rhythm with a normal S1 and S2. No gallops, murmurs, or rubs. Normal PMI, no JVD. No pulse deficits. Respiratory: Lungs have equal breath sounds bilaterally, clear to auscultation and percussion. No rales, rhonchi or wheezes noted. No increased work of breathing, no retractions or nasal flaring. Abdomen/GI: Soft, with normal bowel sounds. No distension or tympany. No guarding or rebound. No evidence of tenderness throughout. Back: No spinal tenderness. No costovertebral tenderness. Male : Normal genitalia with no discharge or lesions. Patient is circumcised male, right testicle appears slightly enlarged but has no mass no redness no swelling. Skin: Warm, dry with normal turgor. Normal color with no rashes, no lesions, and no evidence of cellulitis. MS/ Extremity: Pulses equal, no cyanosis. Neurovascular intact. Full, normal range of motion. Neuro: Awake and alert, GCS 15, oriented to person, place, time, and situation. Cranial nerves II-XII grossly intact. Motor strength 5/5 in all extremities. Sensory grossly intact. Psych: Awake, alert, with orientation to person, place and time. Behavior, mood, and affect are within normal limits Vital Signs: 00:30 BP 133 / 83; Pulse 65; Resp 16; Temp 97.9(O); Pulse Ox 99% on R/A; Weight 65.32 kg; cm10 Height 5 ft. 8 in. ; Pain 7/10; 01:15 BP 126 / 89; Pulse 48; Resp 15 S; Pulse Ox 100% on R/A; jw7 02:00 BP 112 / 92; Pulse 48; Resp 16 S; Pulse Ox 100% on R/A; jw7 00:30 Body Mass Index 21.89 (65.32 kg, 172.72 cm) cm10 00:30 Pain Scale: Adult cm10 Bryant Coma Score: 01:12 Eye Response: spontaneous(4). Motor Response: obeys commands(6). Verbal Response: sp4 oriented(5). Total: 15. MDM: 00:34 Patient medically screened. sp4 01:17 Differential Diagnosis altered mental status, sepsis, flu, Testicular pain or torsion . sp4 Data reviewed: vital signs, nurses notes, lab test result(s), radiologic studies, doppler. 02:34 ED course: EXAM DESCRIPTION: Scrotum Testicles 01/06/2024 2:19 AM CDT CLINICAL HISTORY: sp4 28 years, Male, Right testicular pain, history of hydrocele surgery COMPARISON: Previous CT scan performed 05/13/2023 TECHNIQUE: Transverse and longitudinal real-time imaging of the scrotal contents was performed with grayscale, pulsed wave and color Doppler flow. FINDINGS: Study is compromised due to patient unable to tolerate scanning Right: Testis: Measures 4.7 x 3.1 x 3.7 cm. There is complex heterogeneous hypoechoic testicular parenchyma compared to the left. There is diminished flow. Epididymis: Was not visualized Hydrocele: None. Varicocele: None. Masses: None. Left: Testis: Measures 3.8 x 2 x 2.1 cm. There is slight increased flow Epididymis: Not visualized Hydrocele: None. Varicocele: None. Masses: None. IMPRESSION: Abnormal heterogeneous hypoechoic testicular parenchyma compared to the left with diminished flow. Findings are suspicious for right-sided testicular torsion and/or related to long-standing right testicular hydrocele as well as visualized and previous CT scan. . 02:41 Consideration of Admission/Observation Patient was admitted/placed on observation. sp4 Escalation of care including admission/observation considered. ED course: Patient at this time warrants transfer to [facility] in [place] for evaluation by urologist. Patient states that about 4 months ago he had right hydrocele surgery at [facility]. . 03:02 ED course: I spoke with Dr. Knapp , who is urologist at [facility] who states if there is sp4 still some blood flow then findings are NOT consistent with a torsion. We do agree with that. [facility] urology clinic will organize patient's visit to the clinic this morning for evaluation by Urology. Since the pain has been there for 1.5 weeks and patient's ultrasound reveals blood flow to the right testicle, we do agree patient is appropriate for visit to the Urology clinic this morning instead of emergent transfer to [facility]. . 01/05 00:34 Order name: CBC with Diff; Complete Time: 03:23 sp4 01/05 00:34 Order name: CMP; Complete Time: 02:34 sp4 01/05 01:32 Order name: Manual Differential; Complete Time: 03:23 EDMS 01/05 00:33 Order name: US Scrotum Testicles sp4 01/05 00:34 Order name: IV Saline Lock; Complete Time: 01:09 sp4 01/05 00:34 Order name: Labs collected and sent; Complete Time: 01: sp4 Administered Medications: 01:20 Drug: TORadol - Ketorolac IVP 30 mg IVP once Route: IVP; Site: right antecubital; jw7 03:24 Follow up: Response: No adverse reaction cm10 01:20 Drug: Ondansetron IVP 4 mg IVP once; over 2 minutes Route: IVP; Site: right antecubital;jw7 03:24 Follow up: Response: No adverse reaction cm10 Disposition Summary: 01/06/24 03:07 Discharge Ordered Problem: new(01/06/24 03:07) sp4 Symptoms: have improved(01/06/24 03:07) sp4 Condition: Stable(01/06/24 03:07) sp4 Diagnosis - Right testicular pain, diminished vascularity of the right testicle, right sp4 testicular hydrocele Followup: sp4 - With: Private Physician - When: Today - Reason: Recheck today's complaints Discharge Instructions: - Discharge Summary Sheet sp4 - Testicular Self-Exam, [id number] sp4 Forms: - Patient Portal Instructions sp4 Signatures: Dispatcher [employer] EDMacy Fan RN RN jw7 lFavio Serna MD MD sp4 Diana Dominguez RN RN cm10 Corrections: (The following items were deleted from the chart) 03:06 02:44 [facility] sp[facility] 03:06 02:44 [facility] sp4 sp4 03:06 02:44 Higher level of care sp4 sp4 03:06 02:44 Stable sp4 sp4 03:06 02:44 new sp4 sp4 03:06 02:44 have improved sp4 sp4 03:06 02:44 Right testicular pain, diminished right testicular blood flow, suspected right sp4 testicular torsion sp4
[2024-01-06 03:15] LABS: Differential Total Cells Count 100; Eosinophils 2 % (0-3); Lymphocytes 55 % (15-42); Monocytes 4 % (0-10); Reactive Lymphocytes 18 %; Segmented Neutrophils 21 % (40-80); Smudge Cells 3
[2024-01-06 03:16] LABS: Blood Morphology Comment NOT SEEN (NOT SEEN); Platelet Estimate ADEQ
[2024-01-06 03:29] VITALS: TEMP 97.9
[2024-01-06 03:54] VITALS: BP 112/92; O2SAT 100
--- NOTE | 2024-01-06 12:45 | RAD REPORT ---
EXAM DESCRIPTION: Scrotum Testicles 01/06/2024 2:19 AM CDT CLINICAL HISTORY: 28 years, Male, Right testicular pain, history of hydrocele surgery COMPARISON: Previous CT scan performed 05/13/2023 TECHNIQUE: Transverse and longitudinal real-time imaging of the scrotal contents was performed with grayscale, pulsed wave and color Doppler flow. FINDINGS: Study is compromised due to patient unable to tolerate scanning Right: Testis: Measures 4.7 x 3.1 x 3.7 cm. There is complex heterogeneous hypoechoic testicular parenchyma compared to the left. There is diminished flow. Epididymis: Was not visualized Hydrocele: None. Varicocele: None. Masses: None. Left: Testis: Measures 3.8 x 2 x 2.1 cm. There is slight increased flow Epididymis: Not visualized Hydrocele: None. Varicocele: None. Masses: None. IMPRESSION: Abnormal heterogeneous hypoechoic testicular parenchyma compared to the left with dimini shed flow. Findings are suspicious for right-sided testicular torsion and/or related to long-standing right testicular hydrocele as well as visualized and previous CT scan. Electronically signed by: Johnny Rodríguez MD 01/06/2024 02:23 AM CDT Due to temporary technical issues with the PACS/Fluency reporting system, reports are being signed by the in house radiologist without review as a courtesy to ensure prompt reporting. The interpreting r adiologist is fully responsible for the content of the report.
== END 2024-01-06 03:24 | disposition home or self-care (01) ==
LOC: ER 00:23
DX: N43.3 Hydrocele, unspecified (principal); R93.811 Abnormal radiologic findings on diagnostic imaging of right testicle
CPT/HCPCS: 85025; 36415; 80053; 76870; 96375; 96374; 99284; J2405